=== PATIENT | male | born 1960 | race Caucasian/White ===

== ENCOUNTER 2020-10-27 20:15 | Emergency (ER) | payer OTHER, SELFPAY ==
[2020-10-27 20:23] VITALS: BP 162/62; PULSE 94; RESP 16; TEMP 36.8; O2SAT 96; BMI 25.7
--- NOTE | 2020-10-27 23:08 | W.ED.WOUNDLC ---
HPI - Wound/Laceration General: Chief Complaint: Wound/Laceration Stated Complaint: left leg lac Time Seen by Provider: 10/27/20 22:40 History of Present Illness: HPI narrative: Patient is a 60-year-old male who comes to the ED with laceration to the left leg. Patient says he was out in his shop and slipped on some grease. When he slid a grapple hook cut his left lower leg. Denies any other injury or trauma. He is able to weight-bear on left leg. He was able to get bleeding controlled with pressure. He has not had an updated tetanus and would like to get a tetanus shot today. Associated symptoms: Denies chills, fever(s), nausea or vomiting Review of Systems Const: Denies: fever(s), chills or fatigue Eyes: Denies: change in vision or eye discomfort ENMT: Denies: throat pain, odynophagia, nasal discharge or nasal congestion Card: Denies: chest pain, palpitations, edema, swelling of feet/ankles, dyspnea on exertion or orthopnea Resp: Denies: dyspnea, productive cough or non-productive cough GI: Denies: abdominal pain, nausea, vomiting, diarrhea, constipation or hematochezia : Denies: flank pain, difficulty urinating, dysuria or hematuria Musc: Denies: neck pain, back pain or extremity swelling Skin/Breast: Reports: new lesions (Laceration to the left lower leg.); Denies: rash Neuro: Denies: headache(s), numbness in extremities or weakness in extremities Physical Exam Const: COMMON NORMALS: no acute distress, patient oriented x3, healthy appearing and alert GENERAL APPEARANCE: cooperative and comfortable HENMT: COMMON NORMALS: normocephalic HEAD & SCALP: normocephalic MOUTH: Normal oral and palatal mucosa present THROAT: posterior oropharynx normal and uvula midline Neck/C-Spine: COMMON NORMALS: supple GENERAL: Yes normal visual inspection Resp: COMMON NORMALS: normal respiratory effort, No retractions, No use of accessory muscles and clear to auscultation bilaterally AUSCULTATION: clear to auscultation bilaterally Cardio: COMMON NORMALS: regular rate, regular rhythm, S1 normal heart sound present, S2 normal heart sound present, No gallops present (Cardio), No clicks present (Cardio), No murmurs present (Cardio) and Peripheral pulses 2+ throughout RATE: regular rate RHYTHM: regular rhythm HEART SOUNDS: S1 normal heart sound present and S2 normal heart sound present PERIPHERAL PULSES: Peripheral pulses 2+ throughout GI: COMMON NORMALS: Normal to inspection, nondistended, normoactive bowel sounds present, Soft to palpation, non-tender and no masses PALPATION: Yes Soft to palpation : COMMON NORMALS: Yes no CVA tenderness BLADDER/KIDNEY EXAM: Yes no CVA tenderness Back/Pelvis: COMMON NORMALS: no CVA tenderness Extremity: NARRATIVE EXTREMITY EXAM: Left lower leg- linear 1.5 cm superficial laceration. GENERAL: Yes normal exam except as noted Neuro: COMMON NORMALS: patient oriented x3 and moves all extremities SENSORIUM/ORIENTATION: Yes alert Skin: GENERAL SKIN EXAM: dry skin TRAUMA: laceration (1.5cm linear superficial laceration) linear (1.5 superficial laceration), superficial, motor nerve function intact and sensation intact; not actively bleeding and no foreign bodies present Procedures Laceration Laceration 1: Site: lower extremity (left lower leg) Side (If applicable): left Size (cm): 1.5 Description: linear and clean Depth: simple, single layer Local Anesthetic: lidocaine 1% and with epi Amount of anesthesia used (mL): 10 Pre-repair: irrigated extensively (With normal saline and iodine swab.) Skin layer closed with: nylon Size (cm): 4-0 Number of sutures: 5 Technique: simple, interrupted Course Vital Signs: Vital signs: Vital Signs Temperature 98.3 F 10/27/20 20:23 Pulse Rate 80 10/28/20 00:24 Respiratory Rate 16 10/27/20 20:23 Blood Pressure 162/62 10/27/20 20:23 Pulse Oximetry 99 10/28/20 00:24 Discharge Plan Discharge Patient Disposition: Home Clinical Impression: Laceration Condition: Stable Prescriptions: New cephalexin 500 mg capsule 500 mg PO Q6H 4 Days Qty: 16 RF: 0 Discharge Orders: Discharge ED (Routine); Ordered 10/28/20 Ordered By: Fabrizio Arriaza Referrals: Soham Nugent DO [Primary Care Provider] - Discharge Diet: Regular Discharge Activity: Resume usual activity Patient Instructions: Suture Care (ED), Laceration (ED) Activity Restrictions/Additional Instructions: Take full course of antibiotics as prescribed. Keep laceration site clean and dry for the next 48 hours. Then after that you can clean and re-bandage daily. Watch for signs of infection such as redness, warmth, increased tenderness and puslike drainage. If you see the signs of infection return to the ED, urgent care or PCP for reevaluation. call your PCP to schedule a follow-up appointment for reevaluation and suture removal in about 7-10 days. Continue taking all home meds. Follow discharge plans as discussed. You can return to the ED if symptoms worsen. Coding Level of Care Code ED Video Surveillance Technician for Te Yadav Exam Comprehensive
[2020-10-27] MEDS: tetanus-dipt-pertussis 0.5 mL SDV IM (23:21)
[2020-10-28 00:24] VITALS: PULSE 80; O2SAT 99
== END 2020-10-28 00:20 | disposition home or self-care (01) ==
PROVIDERS: Emergency Provider Physician Assistant; PCP Family Medicine
DX: S81.812A Laceration without foreign body, left lower leg, initial encounter (principal); W26.8XXA Contact with other sharp object(s), not elsewhere classified, initial encounter; Z23 Encounter for immunization
CPT/HCPCS: 12001; 90471; 90715; 99282

== ENCOUNTER 2021-02-13 18:40 | Outpatient (CLI) | payer OTHER, SELFPAY ==
--- NOTE | 2021-02-13 18:51 | XR_ITS ---
WS: [id number] HAND RIGHT TECHNIQUE: 3 views of the right hand CLINICAL INFORMATION: RT. FINGER PAIN COMPARISON: None. FINDINGS: Dislocation of the fifth PIP joint best seen on the lateral view. No visualized fractures. Soft tissu e edema. I MPRESSION: Dislocation of the fifth PIP joint best seen on the lateral view. No definite visualized fractures.
== END 2021-02-13 18:41 | disposition home or self-care (01) ==
PROVIDERS: PCP Family Medicine; Visit Provider Family Medicine
DX: S63.256A Unspecified dislocation of right little finger, initial encounter (principal); X58.XXXA Exposure to other specified factors, initial encounter
CPT/HCPCS: 73130

== ENCOUNTER 2021-02-13 20:57 | Emergency (ER) | payer OTHER, SELFPAY ==
[2021-02-13 21:36] VITALS: BP 137/79; PULSE 80; RESP 14; TEMP 37; O2SAT 95; BMI 26.3
--- NOTE | 2021-02-13 21:48 | XRR_ITS ---
PROCEDURE INFORMATION: Exam: XR Right Hand Exam date and time: 02/13/2021 9:48 PM Age: 61 years old Clinical indication: Other: Post reduction pinky finger TECHNIQUE: Imaging protocol: XR Right hand. Views: 1 or 2 views. COMPARISON: No relevant prior studies available. FINDINGS: Bones/joints: On the lateral view, there is a small triangular shaped bone fragment along the dorsal aspect of the 5th proximal interphalangeal joint. This is consistent with a distracted avulsion fracture from the dorsal base of the middle phalanx. The other bones appear intact. Soft tissues: Normal. XR/XR hand RT 2V [id number] IMPRESSION: 1. Avulsion fracture in the dorsal base of the 5th middle phalanx.
--- NOTE | 2021-02-13 21:48 | W.ED.EXTPRO ---
HPI - Extremity Problem General: Chief complaint: Extremity Injury, Upper Stated complaint: Rt pinky dislocated, Time Seen by Provider: 02/13/21 21:07 Source: patient Mode of arrival: ambulatory Limitations: no limitations History of Present Illness: HPI Narrative: 61-year-old male states he was outside today and fell onto his right hand and injured his right pinky finger he was seen at urgent care and spoke to the physician at urgent care and reviewed patient's x-ray and he does have a dislocated finger patient has dislocation at the right pinky PIP joint states he has some slight pain he rates it a 1 out of 10 denies any other injuries denies any worsening improving factors. Associated symptoms: Deny chest pain, fever(s) or rash Review of Systems Const: Denies: fever(s), chills, body aches or change in appetite Eyes: Denies: blurry vision or eye discomfort ENMT: Denies: throat pain or dental pain Card: Denies: chest pain Resp: Denies: dyspnea GI: Denies: abdominal pain, nausea, vomiting or diarrhea : Denies: dysuria Musc: Reports: extremity pain; Denies: neck pain or back pain Skin/Breast: Denies: rash Neuro: Denies: headache(s) Psych: Denies: depression Emery/Lymph: Denies: easy bruising All/Imm: Denies: urticaria Physical Exam Const: COMMON NORMALS: no acute distress and patient oriented x3 GENERAL APPEARANCE: cooperative HENMT: COMMON NORMALS: atraumatic HEAD & SCALP: atraumatic Eye: COMMON NORMALS: EOMs intact bilaterally Neck/C-Spine: COMMON NORMALS: supple Chest: COMMONS NORMALS: normal inspection of the chest Resp: COMMON NORMALS: normal respiratory effort Cardio: COMMON NORMALS: regular rate RATE: regular rate Extremity: NARRATIVE EXTREMITY EXAM: Dislocation to right pinky finger at the PIP joint Neuro: COMMON NORMALS: patient oriented x3 Psych: COMMON NORMALS: mental status grossly normal and cooperative Skin: COMMON NORMALS: no rashes or lesions noted GENERAL SKIN EXAM: no rashes or lesions noted Procedures Orthopedic Joint Reduction Joint #1: Side: right Joint Reduction Location: finger Analgesia: none Post-reduction neuro exam: intact Post-reduction vascular: intact Post Reduction X-Ray Obtained: Yes Post Reduction X-Ray Results: reduced Splint Applied: Yes Patient Tolerated Procedure: well Course Vital Signs: Vital signs: Vital Signs Temperature 98.6 F 02/13/21 21:36 Pulse Rate 80 02/13/21 21:36 Respiratory Rate 14 02/13/21 21:36 Blood Pressure 137/79 02/13/21 21:36 Pulse Oximetry 95 02/13/21 21:36 MDM - Extremity (Nontraumatic) MDM Narrative: Medical decision making narrative: Patient presents here with a dislocated right pinky finger I did review the x-ray from urgent care the PIP joint is dislocated no obvious fracture reduced to finger here patient placed in a splint stable for discharge follow-up with PCP and return if worsening. Imaging Data^: xr r hand: Attestation: I personally reviewed and interpreted this imaging study as follows: My impression: Reduced pinky digit Discharge Plan Discharge Patient Disposition: Home Clinical Impression: Dislocation of finger Qualifiers: Encounter type: initial encounter Qualified Code(s): S63.259A - Unspecified dislocation of unspecified finger, initial encounter Condition: Stable Discharge Orders: Discharge ED (Routine); Ordered 02/13/21 Ordered By: Essence Dietz Referrals: Soham Nugent DO [Primary Care Provider] - 1-3 days Discharge Diet: Advance as tolerated Discharge Activity: Resume usual activity Patient Instructions: Finger Dislocation (ED) Coding Level of Care Code ED Restaurant Team Member for Te Yadav
== END 2021-02-13 22:42 | disposition home or self-care (01) ==
PROVIDERS: Emergency Provider Emergency Medicine; PCP Family Medicine
DX: S63.286A Dislocation of proximal interphalangeal joint of right little finger, initial encounter (principal); W19.XXXA Unspecified fall, initial encounter
CPT/HCPCS: 26770; 73120; 99281

== ENCOUNTER 2021-08-14 07:29 | Outpatient (CLI) | payer OTHER, SELFPAY ==
[2021-08-14 08:13] VITALS: BMI 25.7
--- NOTE | 2021-08-14 08:13 | ECG_ITS ---
[facility] Test Date: 2021-08-14 Pat Name: Sundeep Cruz Department: Room: Gender: Male Head Of Business Development: Karin Nickerson : 1960 Requested By: Julia Vazquez Order Number: [id number] Katie MD: Julia Vazquez M.D. Interpretive Statements NAME OF STUDY: EXERCISE SESTAMIBI STRESS TEST INDICATION: Family Hx of CAD, SOB Baseline blood pressure of 141/72 mm Hg, heart rate of 80 beats per minute and oxygen saturation of 96%. EKG showed sinus rhythm, normal axis with normal ST-Ts. ??? The patient exercised for 8 minutes and 39 seconds on a [standard Robin protocol]. Patient attained a maximum heart rate of 143 beats per minute( 91 % of the maximum predicted heart rate) with a blood pressure at the peak exercise of 220/75 mm Hg and oxygen saturation of 98%. The EKG at the peak exercise revealed no significant ST-T wave changes. Patient did not have any chest pain or any significant arrhythmis with the exercise.??? During the recovery phase, there were no new changes. ??? Blood pressure at the end of the recovery phase was 150/90 mm Hg with a heart rate of 95 beats per minute and oxygen saturation of 98%. ??? CONCLUSION: 1. Normal EKG response to treadmill exercise. 2. No exercise-induced chest pain or cardiac arrhythmia. 3. Excellent exercise tolerance, attained a maximum of 10.2 METs. 4. Perfusion portion of the study will be reported separately. Electronically Signed On 08-24-2021 17:31:38 CDT by Julia Vazquez M.D. [email or web address]
--- NOTE | 2021-08-14 08:13 | NMCV_ITS ---
NM mary perf SPECT r/s* [id number] Sundeep Cruz Age: 61 Gender: M : 1960 Exam Date: 08/14/2021 08:58 Ordering Phys: Julia Vazquez MD ([email or web address]) Technologist: JAYME Platt Exam Location: [facility] Indications: CHEST PAIN, SOB, FAMILY H/O CAD STRESS TEST Please see separate stress [facility] for full findings IMAGE PROTOCOL Rest/Stress 1 Exercise Day Radiopharmaceutical Dose (mCi) Administration Site Administered by Rest: Tc-99m 10.8 IV JAYME Matos Sestamijoaquin Stress:Tc-99m 32.6 IV JAYME Matos Sestamijoaquin Rest: 14-Aug-2021 60 Discovery 630 Stress: 14-Aug-2021 30 Discovery 630 Radiopharmaceutical was injected at 85 % maximum heart rate. Images obtained in supine and prone position. SPECT RESULTS Technical Quality: Excellent Raw Data Analysis: Normal Image Corrections: No attenuation or motion correction applied Summed Stress Score: 0 Summed Rest Score: 0 Summed Difference Score: 0 PERFUSION FINDINGS Small sized perfusion abnormality of mild severity of mid inferior wall on supine stress images with improved tracer uptake in prone stress images. This is likely suggestive of attenuation artifact. FUNCTIONAL RESULTS (calculated via Gated SPECT) Stress Image LV EF (%): 61 Stress EDV (mL):114 TID: 0.86 Stress ESV (mL):45 FUNCTIONAL FINDINGS: The left ventricle is normal in size. Transient Ischemia Dilatation of 0.86. The left ventricular ejection fraction is normal with a value of 61%. There is normal left ventricular wall thickening. IMPRESSIONS 1. Myocardial perfusion imaging is normal. 2. Overall left ventricular systolic function is normal without regional wall motion abnormalities, LVEF=61%. 3. Excellent exercise capacity with normal EKG response to exercise. Refer to separate report for details. Julia Vazquez MD (Electronically Signed) Final Date: 24 August 2021 17:47 S
[2021-08-14 10:00] VITALS: BP 150/90; PULSE 97
== END 2021-08-14 07:30 | disposition home or self-care (01) ==
LOC: CDL 07:33
PROVIDERS: PCP Family Medicine; Visit Provider Internal Medicine Cardiovascular Disease
DX: R07.9 Chest pain, unspecified (principal)
CPT/HCPCS: 78452; 93017; A9500

== ENCOUNTER 2021-10-30 11:01 | Outpatient (CLI) | payer OTHER, SELFPAY ==
--- NOTE | 2021-10-30 11:13 | XR_ITS ---
WS: [id number] Right hand, 3 views, 10/30/2021 Clinical Data: frozen finger Comparison: Right hand, 02/13/2021. Findings: No fractures or dislocations are seen. The soft tissues are unremarkable. There is flexio n deformity of the right fifth finger PIP joint with a periarticular calcification on the ulnar dorsa l aspect of the distal proximal phalanx. XR/XR hand RT min 3V* [id number] Impression: Flexion deformity of the right fifth finger PIP joint with periarticular calcif ication.
== END 2021-10-30 11:02 | disposition home or self-care (01) ==
PROVIDERS: PCP Family Medicine; Visit Provider Family Medicine
DX: M79.644 Pain in right finger(s) (principal)
CPT/HCPCS: 73130

== ENCOUNTER → 2022-06-23 12:23 | Outpatient (BNVA) | payer OTHER, SELFPAY | PROVIDERS: PCP Family Medicine; Visit Provider Family Medicine | DX: Z00.00 Encounter for general adult medical examination without abnormal findings (principal); F32.A Depression, unspecified; E78.00 Pure hypercholesterolemia, unspecified | CPT/HCPCS: 80053; 80061; 82607; 84443; 85025 ==

== ENCOUNTER → 2022-07-28 10:29 | Outpatient (BNVA) | payer OTHER, SELFPAY | PROVIDERS: PCP Family Medicine; Visit Provider Family Medicine | DX: R50.9 Fever, unspecified (principal); M79.10 Myalgia, unspecified site; E03.9 Hypothyroidism, unspecified | CPT/HCPCS: 80053; 85025; 86140; 86618; 86666; 86757 ==

== ENCOUNTER 2022-10-04 15:23 | Emergency (ER) | payer OTHER, SELFPAY ==
[2022-10-04 15:36] VITALS: BP 128/82; PULSE 103; RESP 14; O2SAT 95; BMI 25.7
--- NOTE | 2022-10-04 15:39 | XRR_ITS ---
PROCEDURE INFORMATION: Exam: XR Left Shoulder Exam date and time: 10/04/2022 4:25 PM Age: 62 years old Clinical indication: Injury or trauma; Fall; Additional info: Fall injury TECHNIQUE: Imaging protocol: Radiologic exam of the left shoulder. Views: 2 or more views. COMPARISON: No relevant prior studies available. FINDINGS: Bones/joints: No fracture or dislocation is seen about the left shoulder. No abnormal widening or separation of the left AC joint. Mild degenerative change of the left shoulder. No abnormal soft tissue calcification is seen about shoulder joint. Visualized adjacent osseous structures show no acute abnormality. Significant focal tissue abnormality. Soft tissues: See Bones/joints finding. XR/XR shoulder LT min 2V* [id number] IMPRESSION: No fracture or dislocation.
--- NOTE | 2022-10-04 17:28 | ED_ITS ---
HPI - Extremity Problem General: Chief complaint: Extremity Injury, Upper Stated complaint: fall, left shoulder Time Seen by Provider: 10/04/22 15:39 History of Present Illness: Patient is a [id number] 62-year-old man that presents to the emergency department with left shoulder pain. Patient states he was walking down a steep hill when he lost his footing and fell backwards he stretched his left arm out behind him when he landed. He says he had immediate pain in the lambert perior/anterior aspect of the shoulder. Patient has no wounds and denies any sensory changes. Associated symptoms: Deny chest pain, fever(s) or rash Review of Systems General: Reports: 10 or more systems reviewed and unremarkable except in HPI and below Const: Denies: fever(s), chills, change in appetite, change in weight, fatigue or malaise Eyes: Denies: change in vision, eye discomfort, eye discharge or eye redness ENMT: Denies: throat pain, enlarged tonsils, odynophagia, hoarseness, ear or mastoid pain, ear discharge, change in hearing, tinnitus, nasal discharge, nasal congestion, post nasal drip or sinus pain Card: Denies: chest pain, palpitations, irregular heart rhythm, edema, dyspnea on exertion, orthopnea or leg pain with exertion Resp: Denies: dyspnea, productive cough, non-productive cough, wheezing, stridor or chest congestion GI: Denies: abdominal pain, nausea, vomiting, dysphagia, diarrhea, constipation, bloating, GI cramping or hematochezia : Denies: flank pain, dysuria, urinary frequency, urinary urgency, urinary hesitancy, oliguria or hematuria Musc: Reports: extremity pain and joint pain; Denies: neck pain, back pain, joint swelling, joint redness, joint warmth or muscle weakness Skin/Breast: Denies: rash, pruritus, erythema, photosensitivity or new lesions Neuro: Denies: headache(s), numbness in extremities, weakness in extremities, sensory changes, lack of coordination, difficulty walking, frequent falls, dizziness, confusion, Slurred speech present, difficulty communicating thoughts, seizure-like activity or involuntary movements Endo: Denies: polyuria, polydipsia or tired all the time Emery/Lymph: Denies: easy bruising or easy bleeding [facility] ED PFSH: Medical History Depression Family history of coronary artery disease GERD (gastroesophageal reflux disease) Hypercholesteremia Surgical History History of detached retina repair S/P vasectomy Family History Mother Hyperlipidemia Brother Hyperlipidemia Hx of CABG Myocardial infarction X3 brothers Stroke LVAD (left ventricular assist device) present Father Diabetes Other CAD (coronary artery disease) Hypertension Social History Smoking and tobacco status: former smoker Physical Exam Const: COMMON NORMALS: no acute distress, patient oriented x3 and alert GENERAL APPEARANCE: cooperative ORIENTATION/CONSCIOUSNESS: Yes awake, Yes oriented to person, Yes oriented to place and Yes oriented to time Neck/C-Spine: COMMON NORMALS: full ROM GENERAL: Yes normal visual inspection Resp: COMMON NORMALS: normal respiratory effort, No retractions, No use of accessory muscles and clear to auscultation bilaterally EFFORT & INSPECTION: Yes able to speak in complete sentences and Yes symmetric chest movement AUSCULTATION: clear to auscultation bilaterally Extremity: COMMON NORMALS: normal to inspection NARRATIVE EXTREMITY EXAM: Left upper extremity: Skin is clean dry and intact No ecchymosis, erythema, edema or warmth noted over the joint Limited movement of the left shoulder due to pain Patient has full active range of motion of the left elbow Has full active extension of the wrist Patient is able to give a thumbs up make an okay sign, cross fingers, abduct fingers and make a fist Sensation intact to light touch at axillary, radial, median, ulnar nerve distribution Radial pulses palpable and cap refills less than 3 seconds GENERAL: Yes normal exam except as noted Neuro: COMMON NORMALS: patient oriented x3 SENSORIUM/ORIENTATION: Yes alert, Yes oriented to person, Yes oriented to place and Yes oriented to time CRANIAL NERVES: Yes CN normal except as noted Psych: COMMON NORMALS: mental status grossly normal, Normal thought process present, cooperative, activity/motor behavior normal, denies homicidal ideation and denies suicidal ideation THOUGHT PROCESS: Normal thought process present Skin: COMMON NORMALS: no rashes or lesions noted, no wounds and turgor normal GENERAL SKIN EXAM: no rashes or lesions noted and turgor normal Course Vital Signs: Vital signs: Vital Signs Pulse Rate 103 H 10/04/22 15:36 Respiratory Rate 14 10/04/22 15:36 Blood Pressure 128/82 10/04/22 15:36 Pulse Oximetry 95 10/04/22 15:36 Oxygen Delivery Me thod Room Air 10/04/22 15:36 MDM - Extremity (Nontraumatic) Medical Decision Making Patient was evaluated in the emergency department for left shoulder pain. He underwent XR imaging to assess for fracture, fracture dislocation, AC se paration. Patient's XR imaging of the left shoulder reveals no acute findings. Is likely that he has soft tissue contusion but there is still a chance that he has a ligamentous injury. Advising the patient to start passive range of motion and to use RICE and NSAIDs for pain relief. If he is not better in a week he should follow-up with his primary care doctor for additional imaging. Patient is agreeable and all questions were answered Lab Data Radiology Impressions Shoulder X-Ray 10/04/22 15:39 IMPRESSION: No fracture or dislocation. Discharge Plan Discharge Patient Disposition: Home Clinical Impression: Acute shoulder pain Condition: Stable Prescriptions: New ketorolac 10 mg tablet 10 mg PO TID PRN (Reason: pain) 5 Days Qty: 15 0RF No Action omega 1-ubw-oan-fish-turmeric 417 mg-120 mg- 276 mg-600 mg capsule PO doxycycline hyclate 100 mg capsule 100 mg PO BID Qty: 20 0RF prednisone 10 mg tablet 10 mg PO DAILY Qty: 10 0RF multivitamin Tablet 1 tab PO DAILY atorvastatin 10 mg tablet 10 mg PO DAILY Qty: 90 3RF duloxetine 60 mg capsule,delayed release(DR/EC) 60 mg PO DAILY Qty: 90 1RF omeprazole 40 mg capsule,delayed release(DR/EC) 40 mg PO DAILY Qty: 90 3RF testosterone cypionate 200 mg/mL oil 200 mg SUBCUT Q7D Qty: 10 1RF Discharge Orders: Discharge ED (Routine); Ordered 10/04/22 Ordered By: Tano Blake Referrals: Soham Nugent, [Primary Care Provider] - Discharge Diet: Advance as tolerated Discharge Activity: Resume usual activity Patient Instructions: Shoulder Pain (ED), Pain Management Activity Restrictions/Additional Instructions: You may begin passive shoulder range of motion. As tolerated you may increase your range of motion to active range of motion. Want you to use rest, ice, and NSAIDs for pain relief. If you are not better in 1 week and wanted to follow-up with your primary care doctor. Coding Level of Care Code ED Draw Tender for Te Yadav
[2022-10-04] MEDS: ketorolac 60 mg/2 mL INJ IM (17:42)
== END 2022-10-04 17:43 | disposition home or self-care (01) ==
PROVIDERS: Emergency Provider Nurse Practitioner; PCP Family Medicine
DX: M25.512 Pain in left shoulder (principal); Z87.891 Personal history of nicotine dependence
CPT/HCPCS: 73030; 96372; 99284; J1885

== ENCOUNTER → 2022-10-12 08:18 | Outpatient (BNVA) | payer OTHER, SELFPAY | PROVIDERS: PCP Family Medicine; Visit Provider Family Medicine | DX: F32.A Depression, unspecified (principal); R79.89 Other specified abnormal findings of blood chemistry | CPT/HCPCS: 80053; 82040; 84270; 84403; 85025 ==

== ENCOUNTER → 2023-03-30 09:00 | Outpatient (BNVA) | payer OTHER, SELFPAY | PROVIDERS: PCP Family Medicine; Visit Provider Family Medicine | DX: R79.89 Other specified abnormal findings of blood chemistry (principal) | CPT/HCPCS: 82040; 84270; 84403 ==

== ENCOUNTER 2023-08-11 08:42 | Outpatient (CLI) | payer OTHER, SELFPAY ==
--- NOTE | 2023-08-11 09:30 | MR_ITS ---
WS: [id number] MRI RIGHT SHOULDER HISTORY: Fall 1 month ago. COMPARISON: None available. TECHNIQUE: Multiplanar sequences of the shoulder joint are submitted. Moderate AC joint arthritis. Hypertrophic distal clavicle encroaching upon the supraspinatus myotendi nous insertion site. There is significant deformity of the supraspinatus muscle and tendon. Mild suba cromial impingement. No os acromion. Biceps tendon in normal position. Mildly high riding humeral head. Advanced degenerative changes at the glenohumeral joint. There is lo ss of cartilage surrounding the humeral head and at the glenoid. Subchondral cysts along the posterio r lateral humeral head. No acute fracture is identified. There is significant signal abnormality in the distal supraspinatus tendon. Mixed signal encroaching and deforming the supraspinatus tendon at the level of the AC joint and glenohumeral joint is probabl y from a prior contusion injury and there may be some associated resolving hemorrhage. There is addit ional tendinopathy extending over the distal 3 to 4 cm of the tendon. Moderate size insertion site te ar of the supraspinatus. Tendon tear is along the anterior most insertion site extending over a width of approximately 11 mm. No tendon retraction. No muscle atrophy. There is a large lobulated cystic m ass along the subscapularis tendon which may be a subscapularis recess bursa which is significantly d istended. This fluid is closely associated with the subscapularis tendon and the coracohumeral ligame nt although no definite tear is identified. There is a very small amount of increased signal in the superior labrum consistent with a very small tear. There is a small amount of increased edema and T2 signal in the proximal supraspinatus muscle. This c an be seen with edema from recent trauma or denervation. MR/MR shoulder RT wo con* [id number] IMPRESSION: 1. Moderate AC joint arthritis. 2. There is significant encroachment upon the myotendinous region of the supra spinatus tendon with heterogeneity in the subacromial and subdeltoid bursa. Con tusion type injury with continued mass effect upon the supraspinatus. 3. Significant tendinopathy in the distal 3 to 4 cm of the supraspinatus tendo n with an 11 mm insertion site tear of the supraspinatus. 4. Large lobulated cystic mass closely associated with the subscapularis tendo n and the coracohumeral ligament. This is either a ganglion associated with the subscapularis tendon or a cyst associated with an occult labral tear or tendon tear. 5. There is a small focal tear involving the superior labrum. 6. Advanced degenerative glenohumeral joint arthritis with joint space narrowi ng and loss of cartilage. 7. Biceps tendon in satisfactory position. 8. Small amount of edema in the supraspinatus muscle may be from the recent tr auma or early denervation changes.
== END 2023-08-11 08:43 | disposition home or self-care (01) ==
LOC: RAD 08:43
PROVIDERS: PCP Family Medicine; Visit Provider Family Medicine
DX: M24.111 Other articular cartilage disorders, right shoulder (principal)
CPT/HCPCS: 73221

== ENCOUNTER → 2024-07-24 11:53 | Outpatient (BNVA) | payer OTHER, SELFPAY | PROVIDERS: PCP Family Medicine; Visit Provider Family Medicine | DX: Z00.00 Encounter for general adult medical examination without abnormal findings (principal); E78.00 Pure hypercholesterolemia, unspecified; R79.89 Other specified abnormal findings of blood chemistry | CPT/HCPCS: 80053; 80061; 82040; 84270; 84403; G0103 ==

== ENCOUNTER 2024-10-29 18:12 | Emergency (ER) | payer OTHER, SELFPAY ==
[2024-10-29 18:16] VITALS: BP 146/75; PULSE 107; RESP 17; TEMP 36.7; O2SAT 97; BMI 26.3
--- OUTSIDE RECORDS SUMMARY | 2024-10-29 18:26 | XMS_ITS | Clinical Summary ---
Author Organization [facility] Address [address] [place] [address] Phone Care Team Providers Care General Manager Land Department Name Role Phone Unavailable Primary Care Provider Unavailabl e Allergies No known active allergies Medications omeprazole (PriLOSEC) 40 mg Capsule, Delayed Release(E.C.) Take 40 mg by mouth daily. 02/11/2022 Active testosterone cypionate (DEPO-TESTOSTER ONE) 200 mg/mL Oil INJECT 1 ML UNDER THE SKIN EVERY 7 DAYS 02/11/2022 Active atorvastatin (LIPITOR) 10 mg tablet Take 10 mg by mouth daily. 01/29/2022 Active citalopram (CeleXA) 20 mg tablet Take 20 mg by mouth daily. 02/09/2022 Active latanoprost (XALATAN) 0.005 % solution INSTILL 1 DROP TO BOTH EYES EVERY EVENING 03/30/2024 Active Hospital, Clinic, or Other Facility Administered Medication Ordered Dose Route Frequency Start Date End Date Status proparacaine (OPTHAINE) 0.5 % ophthalmic solution 2 DropIndications:Horse shoe tear of retina of right eye,Combined form of age-related cataract, right eye,Pseudophakia of left eye,Left retinal detachment 2 Drop Both Eyes ONE TIME ONLY 08/15/2024 Active tropicamide (MYDRIACYL) 1 % ophthalmic solution 1 DropIndications:Horse shoe tear of retina of right eye,Combined form of age-related cataract, right eye,Pseudophakia of left eye,Left retinal detachment 1 Drop Both Eyes ONE TIME ONLY 08/15/2024 Active phenylephrine 2.5 % ophthalmic solution 1 DropIndications:Horse shoe tear of retina of right eye,Combined form of age-related cataract, right eye,Pseudophakia of left eye,Left retinal detachment 1 Drop Both Eyes ONE TIME ONLY 08/15/2024 Active Active Problems No known active problems Encounters Date Type Department Care Team Description 08/15/2024 9:00 AM CDT Office Visit [facility] [place] [address] [address] Declan Talbot MD Horseshoe tear of retina of right eye (Primary Dx); Combined form of age-related cataract, right eye; Pseudophakia of left eye; Left retinal detachment from Last 3 Months Family History Medical History Relation Name Comments Diabetes Father Glaucoma Father Relation Name Status Comments Father Social History Tobacco Use Types Packs/Day Years Used Date Smoking Tobacco: Former Cigarettes Smokeless Tobacco: Current Chew Tobacco Cessation:Ready to Q uit: Not Asked; Counseling Given: Not Answered Alcohol Use Standard Drinks/Week Comments Never 0 (1 standard drink = 0.6 oz pur e alcohol) Sex and Gender Information Value Date Recorded Sex Assigned at Not on file Legal Sex Male 3:33 PM CDT Gender Identity Not on file Sexual Orientation Not on file Last Filed Vital Signs Vital Sign Reading Time Taken Comments Blood Pressure 138/84 12/14/2023 8:44 AM CDT Pulse 80 02/18/2022 8:09 AM VP COMPLIANCE Temperature - - Respiratory Rate 18 02/18/2022 8:09 AM VP COMPLIANCE Oxygen Saturation - - Inhaled Oxygen Concentration - - Weight 93.9 kg (207 lb) 12/14/2023 8:44 AM CDT Height 188 cm (6' 2 ) 12/14/2023 8:44 AM CDT Body Mass Index 26.58 12/14/2023 8:44 AM CDT Plan of Treatment Health Maintenance Due Date Last Done Comments Pre-Diabetes and Diabetes Screening 1958 DTAP/TDAP/TD VACCINES (1 - Tdap) 1977 COLORECTAL SCREENING 2003 Colorectal Cancer Screening 2003 FIT-DNA Q 3 years 2003 FIT/FOBT Q 1 year 2003 Flex Sig/CT Colonography Q 5 years 2003 PNEUMOCOCCAL VACCINE 50+ YEARS (1 of 1 - PCV) 01/16/20 08 ZOSTER VACCINE (1 of 2) 01/16/2008 Abdominal Aortic Aneurysm (AAA) Screening 2023 INFLUENZA VACCINE (#1) 2024 COVID-19 Vaccine ( season) 2024 RSV VACCINE (60+ or ) (1 - 1-dose 75+ series) 2033 Procedures Procedure Name Priority Date/Time Associated Diagnosis Comments OCT, RETINA - OU - BOTH EYES Routine 08/15/2024 10:36 AM CDT Horseshoe tear of retina of right eye Combined form of age-related cataract, right eye Pseudophakia of left eye Left retinal detachment from Last 3 Months Results * OCT, RETINA - OU - BOTH EYES (08/15/2024 10:36 AM CDT) Narrative [facility] - 08/15/2024 10:58 AM CDT Right eye: No surface traction. Normal foveal contour. No cystoid spaces. No intraretinal fluid. No Subretinal fluid Left eye: No surface traction. Normal foveal contour. No cystoid spaces. No intraretinal fluid. No Subretinal fluid Declan Talbot MD OPHTH TOMOGRAPHY Final Result [facility] from Last 3 Months Insurance [employer] [facility] [id number]
[2024-10-29 18:59] VITALS: BP 140/70; PULSE 103; RESP 18; O2SAT 95
--- NOTE | 2024-10-29 19:15 | CTR_ITS ---
PROCEDURE INFORMATION: Exam: CT Chest With Contrast; Diagnostic Exam date and time: 10/29/2024 7:35 PM Age: 64 years old Clinical indication: Injury or Trauma, fall, mid back and flank pain TECHNIQUE: Imaging protocol: Diagnostic computed tomography of the chest with contrast. Radiation optimization: All CT scans at this facility use at least one of these dose optimization techniques: automated exposure control; mA and/or kV adjustment per patient size (includes targeted exams where dose is matched to clinical indication); or iterative reconstruction. Contrast material: OMNI 350; Contrast volume: 100 ml; Contrast route: INTRAVENOUS (IV); COMPARISON: CT cervical spin wo con* [id number] 10/29/2024 7:33 PM RADIATION DOSE METRICS: Total DLP (mGy-cm): 2120.51 FINDINGS: Lungs: No pulmonary consolidation or mass. Pleural spaces: No pleural effusion. No pneumothorax. Heart: No cardiomegaly. No pericardial effusion. Lymph nodes: No lymphadenopathy by CT size criteria. Vasculature: Unremarkable. No aortic aneurysm. Bones/joints: No acute fracture. Soft tissues: Soft tissues are unremarkable. PROCEDURE INFORMATION: Exam: CT Abdomen And Pelvis With Contrast Exam date and time: 10/29/2024 7:35 PM Age: 64 years old Clinical indication: Trauma, fall, mid back and flank pain TECHNIQUE: Imaging protocol: Computed tomography of the abdomen and pelvis with contrast. Radiation optimization: All CT scans at this facility use at least one of these dose optimization techniques: automated exposure control; mA and/or kV adjustment per patient size (includes targeted exams where dose is matched to clinical indication); or iterative reconstruction. Contrast material: OMNI 350; Contrast volume: 100 ml; Contrast route: INTRAVENOUS (IV); COMPARISON: No relevant prior studies available. RADIATION DOSE METRICS: Total DLP (mGy-cm): 2120.51 FINDINGS: Lungs: Visualized lung bases are unremarkable. Liver: Scattered subcentimeter hypoattenuating liver lesions, too small to characterize. Liver is otherwise unremarkable. Gallbladder and biliary ducts: Gallbladder is unremarkable. No calcified gallstones. No biliary ductal dilation. Pancreas: Homogeneous enhancement of the pancreas. No main duct dilation. Spleen: No splenomegaly. Adrenal glands: No adrenal nodule. Kidneys and ureters: No hydronephrosis. Symmetric nephrograms. Small linear hypoattenuating cortical defect in the left kidney without perinephric hematoma. Stomach and bowel: Colonic diverticulosis without CT findings of acute diverticulitis. No bowel dilation. Submucosal fat deposition is noted in the terminal ileum. No associated wall thickening, upstream bowel dilation or adjacent stranding. Appendix: No evidence of appendicitis. Intraperitoneal space: Unremarkable. No free air. No significant fluid collection. Vasculature: Unremarkable. No abdominal aortic aneurysm. Lymph nodes: Unremarkable. No enlarged lymph nodes. Urinary bladder: Unremarkable as visualized. Reproductive: Unremarkable as visualized. Bones/joints: There is a compression deformity of the L2 vertebral body with approximately 50% vertebral body loss. There is slight cortical irregularity of the superior endplate, however there is no soft tissue stranding in the prevertebral soft tissues. Soft tissues: Unremarkable. CT/CT chest abdpel w/*[id number] IMPRESSION: No acute thoracic abnormality. IMPRESSION: 1. There is a compression deformity of the L2 vertebral body with approximately 50% vertebral body height loss. This is age indeterminate but favored to be acute. 2. Indeterminate linear cortical defect in the left kidney. Without adjacent hematoma or perinephric stranding this is favored to represent a chronic cortical scar or sequela of prior instrumentation, though an acute laceration can not be entirely excluded without prior imaging for comparison. Recommend clinical correlation. If clinically indicated, short-term follow-up CT could be considered. 3. Isolated submucosal fat deposition in the terminal ileum, likely incidental. In the absence of clinical or additional imaging findings of active inflammation, this is of uncertain significance. Recommend correlation with clinical history for history of inflammatory bowel disease.
--- NOTE | 2024-10-29 19:18 | CTR_ITS ---
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 Focal C/O of RT flank and RT posterior hip pain. ; Additional info: Head inj TECHNIQUE: Imaging protocol: Computed tomography of the cervical spine without contrast. Radiation optimization: All CT scans at this facility use at least one of these dose optimization techniques: automated exposure control; mA and/or kV adjustment per patient size (includes targeted exams where dose is matched to clinical indication); or iterative reconstruction. COMPARISON: CT head wo con* [id number] 10/29/2024 7:31 PM RADIATION DOSE METRICS: Total DLP (mGy-cm): 341.87 FINDINGS: Bones: No acute fracture of the cervical spine. Grossly normal alignment and curvature. Multilevel degenerative change including prominent multilevel anterior osteophytosis and multilevel dorsal spondylosis most severe at C4-C5 and C6-C7. No severe central spinal canal stenosis. There is narrowing of the lateral recesses at the spondylotic levels. Multilevel facet arthropathy bilaterally. Lungs: Lung apices are unremarkable. Soft tissues: Unremarkable. CT/CT cervical spin wo con* [id number] IMPRESSION: No cervical spine fracture is identified.
--- NOTE | 2024-10-29 19:18 | CTR_ITS ---
PROCEDURE INFORMATION: Exam: CT Head Without Contrast Exam date and time: 10/29/2024 7:31 PM Age: 64 years old Clinical indication: Injury or trauma; Fall; Blunt trauma (contusions or hematomas); Patient was log cutting when a log kicked back against him pushing him back and landing onto his RT side against another log onto ground. Focal C/O of RT flank and RT posterior hip pain. ; Additional info: Head inj TECHNIQUE: Imaging protocol: Computed tomography of the head without contrast. Radiation optimization: All CT scans at this facility use at least one of these dose optimization techniques: automated exposure control; mA and/or kV adjustment per patient size (includes targeted exams where dose is matched to clinical indication); or iterative reconstruction. COMPARISON: No relevant prior studies available. RADIATION DOSE METRICS: Total DLP (mGy-cm): 1162.54 FINDINGS: Brain: No acute infarction, hemorrhage, mass, or extra-axial fluid collection is identified. No midline shift. Cerebral ventricles: No hydrocephalus. Paranasal sinuses: Paranasal sinuses are grossly clear. Mastoid air cells: Mastoid air cells are grossly clear. Bones: Calvarium appears intact. Soft tissues: Unremarkable. CT/CT head wo con* [id number] IMPRESSION: No acute intracranial abnormality.
[2024-10-29 19:20] VITALS: RESP 20
[2024-10-29] MEDS: morphine 4 mg/mL SDV 1 mL IVP (19:20)
[2024-10-29] MEDS: ondansetron 2 mg/ML SDV 2 mL 4 MG IVP (19:20)
[2024-10-29] MEDS: iohexol 350 mg/mL 500 mL Btl (per mL) IV (19:41)
[2024-10-29 20:59] VITALS: BP 109/62; PULSE 84; RESP 16; O2SAT 96
--- NOTE | 2024-10-29 21:22 | W.ED.BACK ---
HPI - Back Pain/Injury General: Chief Complaint: Back Pain/Injury Stated Complaint: RT Ribs Time Seen by Provider: 10/29/24 18:26 History of Present Illness: Patient is a 64-year-old male who presents approximately 2 hours after a logging accident. While cutting a pole, the patient reports the pole was under pressure and caught him in the chin, which flipped him into the air. He subsequently landed on a log, impacting his lower back/flank area. Patient reports pain in the lower rib area and mild difficulty breathing. He denies loss of consciousness, head injury, nausea, vomiting, or extremity pain. Patient took a shower after the incident before seeking medical attention. He states he can exacerbate the pain with certain movements but is otherwise okay at rest. Patient has not eaten since the incident. Related Data Home Medications ?Medication ?Instructions ?Recorded ?Confirmed multivitamin 1 tab PO DAILY 06/19/21 10/15/22 omega-3 417 mg-dha 120 mg-epa-276 cap PO 09/18/21 10/15/22 mg-fish oil 600 mg-turmeric capsule Previous Rx's ?Medication ?Instructions ?Recorded oseltamivir 75 mg capsule (Tamiflu) 75 mg PO DAILY flu prophylaxis #7 05/06/23 caps doxycycline hyclate 100 mg capsule 100 mg PO BID tick born illness 11/05/23 #20 caps testosterone cypionate 200 mg/mL 150 mg (0.75 mL) SUBCUT Q7D low 07/24/24 intramuscular oil testosterone #10 mL omeprazole 40 mg capsule,delayed 40 mg PO DAILY #90 caps 08/21/24 release duloxetine 30 mg capsule,delayed 30 mg PO DAILY #90 caps 10/18/24 release hydrocodone 10 mg-acetaminophen 1 tab PO BID pain 7 days #14 tabs 10/29/24 325 mg tablet Allergies Allergy/AdvReac Type Severity Reaction Status Date / Time No Known Allergies Allergy Verified 07/24/24 11:16 [facility] ED PFS: Medical History Family history of coronary artery disease GERD (gastroesophageal reflux disease) Depression Hypercholesteremia Surgical History History of detached retina repair S/P vasectomy Family History Mother Hyperlipidemia Brother Hyperlipidemia Hx of CABG Myocardial infarction X3 brothers Stroke LVAD (left ventricular assist device) present Father Diabetes Other CAD (coronary artery disease) Hypertension Social History Smoking and tobacco/nicotine status: former use of tobacco/nicotine Physical Exam Const: GENERAL APPEARANCE: cooperative; not ill appearing and not frail appearing HENMT: COMMON NORMALS: normocephalic, atraumatic and Normal external nose present HEAD & SCALP: normocephalic and atraumatic FACE & SINUS: normal facial exam and face symmetric NOSE: Normal external nose present Eye: COMMON NORMALS: Equal, round and reactive pupils present and EOMs intact bilaterally PUPIL: Yes Equal, round and reactive pupils present Neck/C-Spine: GENERAL: Yes trachea midline Chest: CHEST: Yes Symmetrical chest wall rise Resp: COMMON NORMALS: normal respiratory effort, No retractions, No use of accessory muscles and clear to auscultation bilaterally AUSCULTATION: clear to auscultation bilaterally Cardio: COMMON NORMALS: regular rate and regular rhythm RATE: regular rate RHYTHM: regular rhythm GI: COMMON NORMALS: Normal to inspection, nondistended, normoactive bowel sounds present Extremity: COMMON NORMALS: no pedal edema Neuro: [place] COMA SCALE: document GCS findings [place] coma scale eye opening: Spontaneous [place] coma scale verbal response: Orientated [place] coma scale motor response: Obey commands [place] coma scale total score: 15 SENSORY EXAM: Yes extremities (intact) Psych: COMMON NORMALS: speech normal SPEECH: Yes normal speech Skin: COMMON NORMALS: no rashes or lesions noted GENERAL SKIN EXAM: no rashes or lesions noted Course Vital Signs: Vital signs: Vital Signs Temperature 98.1 F 10/29/24 18:16 Pulse Rate 89 10/29/24 22:37 Respiratory Rate 14 10/29/24 22:37 Blood Pressure 99/73 10/29/24 22:37 Pulse Oximetry 93 10/29/24 22:37 Oxygen Delivery Me thod Room Air 10/29/24 18:59 MDM - Back Pain/Injury Medical Decision Making 64-year-old male with poorly localized pain following being thrown into a log. CT and of head and the cervical spine are normal. CT of the chest and pelvis shows a 50% compression fracture at L2 thought to be acute. There are some scarring in the cortex of the left kidney not thought to be acute. There is no adjacent hemorrhage or fat stranding. Warning sign given for return such as vomiting, increasing pain to the left flank, hematuria etc. Stable for discharge. TLSO as an outpatient. Follow-up with spine surgery. Labs Radiology Impressions Chest/Abdomen/Pelvis CT 10/29/24 19:15 IMPRESSION: No acute thoracic abnormality. IMPRESSION: 1. There is a compression deformity of the L2 vertebral body with approximately 50% vertebral body height loss. This is age indeterminate but favored to be acute. 2. Indeterminate linear cortical defect in the left kidney. Without adjacent hematoma or perinephric stranding this is favored to represent a chronic cortical scar or sequela of prior instrumentation, though an acute laceration can not be entirely excluded without prior imaging for comparison. Recommend clinical correlation. If clinically indicated, short-term follow-up CT could be considered. 3. Isolated submucosal fat deposition in the terminal ileum, likely incidental. In the absence of clinical or additional imaging findings of active inflammation, this is of uncertain significance. Recommend correlation with clinical history for history of inflammatory bowel disease. Cervical Spine CT 10/29/24 19:18 IMPRESSION: No cervical spine fracture is identified. Head CT 10/29/24 19:18 IMPRESSION: No acute intracranial abnormality. All radiology interpretation(s) finalized by discharge Discharge Plan Discharge Patient Disposition: Home Clinical Impression: Closed compression fracture of L2 vertebra Condition: Stable Prescriptions: Continued hydrocodone-acetaminophen 10-325 mg tablet 1 tab PO BID 7 Days Qty: 14 0RF No Action omega 4-rba-eam-fish-turmeric 417 mg-120 mg- 276 mg-600 mg capsule PO doxycycline hyclate 100 mg capsule 100 mg PO BID Qty: 20 0RF multivitamin Tablet 1 tab PO DAILY testosterone cypionate 200 mg/mL oil 150 mg SUBCUT Q7D Qty: 10 5RF oseltamivir [Tamiflu] 75 mg capsule 75 mg PO DAILY Qty: 7 0RF omeprazole 40 mg capsule,delayed release(DR/EC) 40 mg PO DAILY Qty: 90 3RF duloxetine 30 mg capsule,delayed release(DR/EC) 30 mg PO DAILY Qty: 90 1RF Discharge Orders: Discharge ED (Routine); Ordered 10/29/24 Ordered By: London Barrera Other Ambulatory Orders: DME: Miscellaneous (Order) Location: None Selected Ordered By: London Barrera Referrals: Kameron Orozco DO [Physician, Orthopedics] - 4-7 days Soham Nugent DO [Primary Care Provider, Family Practice] Patient Instructions: Vertebral Compression Fracture (ED), Opioid Safety, Pain Management, Patient Portal & Teddy Instructions Activity Restrictions/Additional Instructions: Call orthopedic clinic tomorrow for follow-up appointment. Let them know you have a compression fracture. 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 Wear it during waking hours and with weightbearing until seen by spine surgery. Return for worsening pain, particularly on the left flank, blood in the urine, nausea, vomiting, fever, any other concerning symptoms. Medication as directed. Print Language: Hungarian Coding Level of Care Code ED Staff Counselor for Te [facility]
[2024-10-29 22:37] VITALS: BP 99/73; PULSE 89; RESP 14; O2SAT 93
== END 2024-10-29 22:39 | disposition home or self-care (01) ==
PROVIDERS: Emergency Provider Emergency Medicine; PCP Family Medicine
DX: S32.020A Wedge compression fracture of second lumbar vertebra, initial encounter for closed fracture (principal); Z87.891 Personal history of nicotine dependence; W22.8XXA Striking against or struck by other objects, initial encounter
CPT/HCPCS: 70450; 71260; 72125; 74177; 96374; 96375; 99285; J2270; J2405

== ENCOUNTER → 2024-11-15 10:55 | Outpatient (BNVA) | payer OTHER, SELFPAY | PROVIDERS: PCP Family Medicine; Visit Provider Family Medicine | DX: R79.89 Other specified abnormal findings of blood chemistry (principal) | CPT/HCPCS: 82040; 84270; 84403 ==

== ENCOUNTER → 2025-02-12 10:48 | Outpatient (BNVA) | payer OTHER, SELFPAY | PROVIDERS: PCP Family Medicine; Visit Provider Family Medicine | DX: R79.89 Other specified abnormal findings of blood chemistry (principal); R74.01 Elevation of levels of liver transaminase levels | CPT/HCPCS: 80053; 82040; 84270; 84403; 85025 ==